=== PATIENT | female | born 1975 | race Hispanic/Latino ===

== ENCOUNTER 2019-08-13 06:10 | Day surgery (SDC) | payer OTHER ==
[2019-08-06 15:53] LABS: Urine Appearance CLEAR; Urine Bilirubin NEGATIVE (NEG); Urine Blood TRACE (NEG); Urine Color YELLOW; Urine Glucose NEGATIVE (NEG); Urine Protein NEGATIVE (NEG)
[2019-08-06 15:59] LABS: Absolute Lymphocytes (CBC) 2.8 K/uL (0.7-4.9); Basophils % 0.5 % (0-1.3); Hematocrit 38.4 % (36.0-45.0); Lymphocytes % 30.2 % (15.3-44.8); MPV 9.1 fL (7.6-11.3); RBC Red Blood Cell Count 4.17 M/uL (3.86-4.86)
[2019-08-06 16:11] LABS: Urine Microscopic Reflex ORDER UMIC
[2019-08-06 16:38] LABS: Urine Bacteria <20 /HPF (<20); Urine Culture Reflex Order NOT NEEDED; Urine RBC <5 /HPF (NONE SEEN)
[2019-08-13] MEDS ORDERED: Ringers Lactate 1,000 ML IV ONE (06:39)
[2019-08-13] MEDS ORDERED: SCOPOLAMINE HYDROBROMIDE PATCH TD ONE ×2 (06:39→06:50)
[2019-08-13 06:41] LABS: Specific Gravity 1.025 (1.005-1.030)
[2019-08-13] MEDS ORDERED: FENTANYL CITR 100 MCG/2 ML ONE (07:19)
[2019-08-13] MEDS ORDERED: PROPOFOL 200 MG/20 ML VIAL IV ONE (07:19)
[2019-08-13] MEDS ORDERED: MIDAZOLAM HCL 2 MG/2 ML INJ ONE (07:20)
[2019-08-13] MEDS ORDERED: LIDOCAINE 2% MPF 5 ML VIAL ONE (07:20)
[2019-08-13] MEDS ORDERED: ROCURONIUM 50 MG/5 ML VIAL IV ONE (07:20)
[2019-08-13] MEDS ORDERED: NS 0.9% VIAL 10 ML ONE (07:49)
[2019-08-13] MEDS ORDERED: CEFAZOLIN SODIUM 1 GM/VIAL ONE (07:49)
[2019-08-13] MEDS ORDERED: dexAMETHasone 10 MG/ML VIAL ONE (07:49)
[2019-08-13] MEDS ORDERED: ONDANSETRON 4 MG/2 ML VIAL ONE (07:52)
[2019-08-13] MEDS: BUPIVACAINE 0.25% PF 30 ML VIAL ONE ×2 (08:08→08:18)
[2019-08-13] MEDS ORDERED: EPHEDRINE SULF 50 MG/ML VIAL ONE (08:12)
[2019-08-13] MEDS: Ringers Lactate 1,000 ML IV ONE ×2 (08:42→08:45)
[2019-08-13] MEDS ORDERED: KETOROLAC 30 MG/ML INJ ONE (08:50)
[2019-08-13] MEDS ORDERED: GLYCOPYRROLATE 0.2 MG/ML SYR ONE ×2 (08:59)
[2019-08-13] MEDS ORDERED: NEOSTIGMINE 1 MG/ML -10 ML VIAL ONE (08:59)
[2019-08-13] MEDS: HYDROMORPHONE HCL 2 MG/ML inj ONE ×3 (09:27→09:50)
[2019-08-13 10:17] VITALS: O2SAT 100
[2019-08-13] MEDS ORDERED: HYDROCODONE/APAP 5/325 MG TAB ONE (10:50)
[2019-08-13 11:29] VITALS: TEMP 97
[2019-08-13 11:30] VITALS: BP 14/68
--- NOTE | 2019-08-13 19:37 | OP ---
Date of Procedure: 08/13/2019 Surgeon: Hortencia Sanchez MD Vp Site: [facility]. Preoperative Diagnoses: Pelvic pain, left lower quadrant pain, deep dyspareunia, history of endometr iosis. 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 Procedures Performed: Diagnostic laparoscopy, bilateral salpingectomy, left oophorectomy, endometrio sis excision. Anesthesia: General. Estimated Blood Loss: Minimal. Specimens: Left ovary, bilateral tubes and vaginal cuff endometriosis. Complications: No complications. Drains: No drains. Condition: Stable. Indications: The patient is a 43-year-old lady with a history of endometriosis excision in 2004, mere g history of pelvic pain, had a laparoscopic-assisted vaginal hysterectomy in 2008. She had a histor y of left lower quadrant pain increasing progressively over time and deep dyspareunia. On ultrasound , no adnexal masses were palpable. She had been given a referral to Dr. Quiles for evaluation of an y bowel etiology. She is a smoker who is trying to quit. We discussed the options of endometriosis excision alone, removal of tubes or removal of the left ova ry as the pain has been on that side. There were no other findings that were contributing to her rodríguez n significantly. Then, I consented her that the left ovary would be removed so that would decrease t he suspicion of pain on that side and if there was any pathology in the ovary that it would be remove d. No history of urinary stones. No other urinary pathology. She was consented for laparoscopy, bilate ral salpingectomy, left oophorectomy and endo treatment. She was brought to the OR according to the guidelines, no antibiotics were indicated for this clean laparoscopic procedure. Description Of Procedure: So, she was taken back to OR, placed in a supine fashion on the operating table. General anesthesia given. Placed in a dorsal lithotomy position. Abdomen, vulva, vagina, an d perineum were prepped and draped in a sterile fashion. Marion was placed to drain the bladder and a ttached to Marion bag. A vaginal sponge on a stick was placed for retraction of the vaginal cuff and this area was draped. A 1 cm infraumbilical incision was made with a scalpel using the open laparosc opy technique. Fascial edges were tagged with 0 Vicryl sutures on both sides and peritoneum entered sharply. S-retractors were placed. Terry introduced and peritoneal cavity insufflated and site of entry was checked, unremarkable appendix. Systematically, the small bowel, large bowel were all insp ected, and unremarkable. Upper abdominal cavity, the gallbladder was not visible. However, the live r peritoneal surfaces of the diaphragm were all unremarkable as well as omentum. The patient was fede dona in Trendelenburg position. A 5 mm left lower quadrant suprapubic ports were placed under direct vision. Marcaine was given as an anesthetic before any of these incisions were made. Then, fascia w as injected and then a 5 ports were placed on the lateral aspect. Once the pelvic cavity was inspected, there was suspicion of endometriosis implant on the vaginal cuf f towards the right. Rest of the pelvic cavity, the peritoneum was completely clean. No evidence of any endometriotic lesions. The entire anatomy was well visualized in the pelvic brim to the ureteri c tunnels. So, the plan was to remove both tubes and then the left ovary. So, LigaSure 5 mm Duyen was taken and the tubes were removed. The left ovary was removed after dissecting the peritoneum an d isolating the infundibulopelvic ligament pedicle. Then, went on to place the specimens in a bag an d removed them through the 10 port. The endometriosis implant was picked up and peritoneum was opene d up proximal to it on the lateral wall and the peritoneal dissection was performed the ur eter to the lateral aspect and the bladder inferiorly, then taking the implant with the help of the s cissors as well as the LigaSure. Once the entire implant was excised, it was handed off for permanen t pathology. Pictures were taken. No evidence of any trauma to the bladder or the ureter, no bleedi ng. Thorough irrigation and suction were performed. All the specimens were handed out for permanent pathology. Instrument and trocars removed under direct vision. Injection with 0.25% Marcaine was d one again. A total of 25 mL was injected in all 3 incisions including the fascia, subcutaneous plane and subdermal plane. The fascia at the umbilicus closed with the tag sutures, tied to each other an d then all skin incisions closed with interrupted 4-0 Vicryl and Dermabond placed. The vaginal spong e was removed. Marion was removed. The patient was recovered from anesthesia. Instrument, needle, a nd sponge counts were correct at the end the case. The patient tolerated the procedure well. She wa s recovered and taken to the PACU in stable condition. She will follow up with me in 1 week. Result s have been reviewed with her mom in the waiting room. YOHAN Voice ID: [id number] Report ID: [id number]
== END 2019-08-13 11:25 | disposition home or self-care (01) ==
LOC: OR 06:10
PROVIDERS: ATTEND Obstetrics & Gynecology
PROC: 0UT74ZZ Resection of Bilateral Fallopian Tubes, Percutaneous Endoscopic Approach (ICD-10-PCS; 2019-08-13)
PROC: 0UBG4ZZ Excision of Vagina, Percutaneous Endoscopic Approach (ICD-10-PCS; 2019-08-13)
PROC: 0UT14ZZ Resection of Left Ovary, Percutaneous Endoscopic Approach (ICD-10-PCS; principal; 2019-08-13 07:30)
DX: N94.12 Deep dyspareunia (principal); N80.4 Endometriosis of rectovaginal septum and vagina; N83.12 Corpus luteum cyst of left ovary; E78.00 Pure hypercholesterolemia, unspecified; F41.9 Anxiety disorder, unspecified; F17.210 Nicotine dependence, cigarettes, uncomplicated; Z88.1 Allergy status to other antibiotic agents; Z88.5 Allergy status to narcotic agent; Z90.710 Acquired absence of both cervix and uterus; Z80.3 Family history of malignant neoplasm of breast; Z83.3 Family history of diabetes mellitus; Z82.49 Family history of ischemic heart disease and other diseases of the circulatory system; Z82.62 Family history of osteoporosis; Z82.3 Family history of stroke
CPT/HCPCS: 58661; 58662; 85025; 36415; 86900; 86850; 81025; 86901; 88305; J2704; J2710; J2250; J1170; J3010; J1100; J2405; 81003; 81015; J0690